=== PATIENT | female | born 1990 | race African-American/Black ===

== ENCOUNTER 2017-03-21 17:36 | Emergency (ER) | payer MEDICARE, MEDICAID ==
[~2017-03-21] VITALS: Ht 172.7 cm; Wt 97.0 kg
[2017-03-21 19:53] LABS: BASOPHILS % 0.9 % (0.0-2.0); DIFFERENTIAL COMMENT 0; EOSINOPHILS % 2.1 % (0.0-5.0); HEMATOCRIT. 38.5 % (36.0-48.0); HEMOGLOBIN. 12.5 g/dL (12.0-16.0); LYMPHOCYTES % 22.6 % (20.0-50.0); MEAN CORPUSCULAR HEMOGLOBIN 23.1 pg (28.0-32.0); MEAN CORPUSCULAR HGB CONC 32.6 g/dL (31.0-37.0); MEAN CORPUSCULAR VOLUME 71.1 fL (81.0-99.0); MEAN PLATELET VOLUME 9.1 fl (7.4-10.4); MONOCYTES % 5.2 % (2.0-8.0); NEUTROPHILS % 69.2 % (40.0-76.0); PLATELET 348 x1000/uL (130-400); RED BLOOD CELL COUNT 5.42 mill/uL (4.2-5.4); RED CELL DISTRIBUTION WIDTH 14.6 % (11.6-14.6); WHITE BLOOD COUNT 11.8 x1000/uL (4.5-11.0)
[2017-03-21 19:56] LABS: CHLORIDE 101 mEq/L (98-107)
[2017-03-21 20:03] LABS: ACETAMINOPHEN < 2 ug/mL (10-30); ALANINE AMINOTRANSFERASE 18 IU/L (13-61); ALBUMIN 3.3 g/dL (3.4-5.0); ANION GAP 11; CALCIUM 8.7 mg/dL (8.5-10.1); CARBON DIOXIDE 28 mEq/L (21-32); ETHANOL BLOOD < 10 mg/dL; INDEX HEMOLYSI 1 (1-3); INDEX ICTERIC 1 (1-4); INDEX LIPEMIC 1 (1-3); UREA NITROGEN BLOOD 11 mg/dL (7-21)
[2017-03-21 20:04] LABS: eGFR > 60 mL/min (>60)
[2017-03-21 21:02] LABS: CLARITY URINE CLEAR (CLEAR); COLOR URINE YELLOW (YELLOW); GLUCOSE URINE NEGATIVE (NEGATIVE); KETONES URINE NEGATIVE (NEGATIVE); LEUKOCYTE ESTERASE URINE NEGATIVE (NEGATIVE); NITRITE URINE NEGATIVE (NEGATIVE); OCCULT BLOOD URINE NEGATIVE (NEGATIVE); PROTEIN URINE NEGATIVE (NEGATIVE); SPECIFIC GRAVITY URINE 1.018 (1.005-1.030)
[2017-03-21 21:18] LABS: *AMPHETAMINES SCREEN URINE NEGATIVE (NEGATIVE); *BARBITURATES SCREEN URINE NEGATIVE (NEGATIVE); *BENZODIAZEPINES SCREEN URINE NEGATIVE (NEGATIVE); *COCAINE SCREEN URINE NEGATIVE (NEGATIVE); CANNABINOID URINE SCREEN NEGATIVE (NEGATIVE); METHADONE URINE SCREEN NEGATIVE (NEGATIVE); OPIATES URINE SCREEN NEGATIVE (NEGATIVE); PHENCYCLIDINE URINE SCREEN NEGATIVE (NEGATIVE)
[2017-03-21 21:21] LABS: ECSTASY MDMA SCREEN URINE CONF.TEST INDICATED (NEGATIVE)
[2017-03-22 15:57] VITALS: BP 98/53
== END 2017-03-22 15:58 ==
LOC: ER 17:38
DX: F20.9 Schizophrenia, unspecified (principal); R45.851 Suicidal ideations; H91.90 Unspecified hearing loss, unspecified ear
CPT/HCPCS: 36415; 80053; 80305; 80307; 80329; 81003; 81025; 85025; 99285; G0482

== ENCOUNTER 2018-12-05 05:55 | Emergency (ER) | payer MEDICARE, MEDICAID ==
[~2018-12-05] VITALS: Ht 170.2 cm; Wt 96.0 kg
[2018-12-05] MEDS ORDERED: IBUPROFEN 600MG TABLET PO ONE (07:30)
[2018-12-05] MEDS ORDERED: IBUPROFEN 600MG TABLET PO NR (16:36)
[2018-12-05 19:06] VITALS: BP 109/64
[2018-12-08 05:17] LABS: CHLAMYDIA TRACHOMATIS NAA Negative (Negative); NEISSERIA GONORRHOEAE NAA Negative (Negative)
== END 2018-12-05 19:12 | disposition home or self-care (01) ==
LOC: ER 05:55
DX: N89.8 Other specified noninflammatory disorders of vagina (principal); R30.0 Dysuria; F20.9 Schizophrenia, unspecified; Z91.19 Patient's noncompliance with other medical treatment and regimen; H91.90 Unspecified hearing loss, unspecified ear
CPT/HCPCS: 76856; 87210; 87491; 87591; 99284

== ENCOUNTER 2018-12-31 | Emergency (ER) | payer MEDICARE, MEDICAID ==
[~2018-12-31] VITALS: Ht 175.3 cm; Wt 102.0 kg
[2018-12-31 01:08] LABS: CLARITY URINE CLOUDY (CLEAR); COLOR URINE YELLOW (YELLOW); KETONES URINE NEGATIVE (NEGATIVE); LEUKOCYTE ESTERASE URINE 3+ (NEGATIVE); NITRITE URINE NEGATIVE (NEGATIVE); OCCULT BLOOD URINE 3+ (NEGATIVE); PROTEIN URINE NEGATIVE (NEGATIVE); SPECIFIC GRAVITY URINE 1.021 (1.005-1.030)
[2018-12-31 01:22] LABS: HCG SCREEN NEGATIVE
[2018-12-31 01:24] LABS: BASOPHILS % 1.3 % (0.0-2.0); HEMATOCRIT. 30.6 % (36.0-48.0); HEMOGLOBIN. 9.6 g/dL (12.0-16.0); LYMPHOCYTES % 37.1 % (20.0-50.0); MEAN CORPUSCULAR HEMOGLOBIN 18.8 pg (28.0-32.0); MEAN CORPUSCULAR VOLUME 60.2 fL (81.0-99.0); MEAN PLATELET VOLUME 9.1 fl (7.4-10.4); MONOCYTES % 6.5 % (2.0-8.0); NEUTROPHILS % 53.1 % (40.0-76.0); PLATELET 479 x1000/uL (130-400); RED BLOOD CELL COUNT 5.08 mill/uL (4.2-5.4); RED CELL DISTRIBUTION WIDTH 18.7 % (11.6-14.6)
[2018-12-31 01:27] LABS: CHLORIDE 103 mEq/L (98-107)
[2018-12-31 01:33] LABS: ETHANOL BLOOD < 10 mg/dL
[2018-12-31 01:36] LABS: *AMPHETAMINES SCREEN URINE NEGATIVE (NEGATIVE); *BARBITURATES SCREEN URINE NEGATIVE (NEGATIVE); *BENZODIAZEPINES SCREEN URINE NEGATIVE (NEGATIVE); CANNABINOID URINE SCREEN NEGATIVE (NEGATIVE); PHENCYCLIDINE URINE SCREEN NEGATIVE (NEGATIVE)
[2018-12-31 01:37] LABS: *COCAINE SCREEN URINE NEGATIVE (NEGATIVE); METHADONE URINE SCREEN NEGATIVE (NEGATIVE); OPIATES URINE SCREEN NEGATIVE (NEGATIVE)
[2018-12-31 01:37] LABS: PLATELET ESTIMATE SLIGHTLY INCREASED
[2018-12-31] MEDS ORDERED: CEFTRIAXONE SODIUM 250 MG/VIAL IM ONE (03:00)
[2018-12-31 20:04] VITALS: BP 138/85
== END 2018-12-31 20:06 ==
LOC: ER 00:16
DX: T43.222A Poisoning by selective serotonin reuptake inhibitors, intentional self-harm, initial encounter (principal); T37.8X2A Poisoning by other specified systemic anti-infectives and antiparasitics, intentional self-harm, initial encounter; T43.4X2A Poisoning by butyrophenone and thiothixene neuroleptics, intentional self-harm, initial encounter; F32.3 Major depressive disorder, single episode, severe with psychotic features; N39.0 Urinary tract infection, site not specified; D64.9 Anemia, unspecified; H91.90 Unspecified hearing loss, unspecified ear; F20.9 Schizophrenia, unspecified; Y92.89 Other specified places as the place of occurrence of the external cause
CPT/HCPCS: 36415; 80053; 80305; 80307; 80329; 81003; 84703; 85025; 87086; 93005; 96372; 99285; J0696

== ENCOUNTER 2019-03-14 20:58 | Inpatient (IN) | payer MEDICARE, MEDICAID ==
[~2019-03-14] VITALS: Ht 180.3 cm; Wt 97.5 kg
[2019-03-14] MEDS ORDERED: CEFTRIAXONE 1 G PREMIX 50 ML IV ONE (22:15)
[2019-03-14] MEDS ORDERED: HALOPERIDOL LACTATE 5MG/ML VIAL IM ONE (22:15)
[2019-03-14 22:58] LABS: BASOPHILS % 0.8 % (0.0-2.0); EOSINOPHILS % 2.2 % (0.0-5.0); HEMATOCRIT. 31.5 % (36.0-48.0); HEMOGLOBIN. 9.9 g/dL (12.0-16.0); LYMPHOCYTES % 28.9 % (20.0-50.0); MEAN CORPUSCULAR HEMOGLOBIN 18.4 pg (28.0-32.0); MEAN CORPUSCULAR VOLUME 58.3 fL (81.0-99.0); MEAN PLATELET VOLUME 8.8 fl (7.4-10.4); NEUTROPHILS % 62.1 % (40.0-76.0); PLATELET 450 x1000/uL (130-400); RED BLOOD CELL COUNT 5.41 mill/uL (4.2-5.4); RED CELL DISTRIBUTION WIDTH 18.7 % (11.6-14.6)
[2019-03-14 23:03] LABS: CHLORIDE 104 mEq/L (98-107)
[2019-03-14 23:07] LABS: ETHANOL BLOOD < 10 mg/dL
[2019-03-14 23:08] LABS: PLATELET ESTIMATE INCREASED
[2019-03-14 23:09] LABS: HCG SCREEN NEGATIVE
[2019-03-15] MEDS ORDERED: PIPERACILLIN/TAZOBACTAM 3.375GM/50ML PREMIX IV SCH (02:00)
[2019-03-15] MEDS ORDERED: PIPERACILLIN/TAZ 3.375G PREMIX 50 ML IV SCH (02:15)
[2019-03-15] MEDS ORDERED: LORAZEPAM 2MG/ML CPJ IV PRN (02:15)
[2019-03-15] MEDS ORDERED: ACETAMINOPHEN 325MG TABLET PO PRN (02:15)
[2019-03-15] MEDS ORDERED: VANCOMYCIN 1 G PREMIX 200 ML IV SCH (02:15)
[2019-03-15] MEDS ORDERED: ONDANSETRON HCL 4MG/2ML INJ IV PRN (02:15)
[2019-03-15] MEDS ORDERED: DIPHENHYDRAMINE 50MG/ML VIAL IV PRN (02:15)
[2019-03-15] MEDS ORDERED: VANCOMYCIN 750 MG PREMIX 150 ML IV SCH (03:00)
[2019-03-15 08:00] VITALS: BP 145/71
[2019-03-15 09:00] VITALS: BP 145/71
[2019-03-15] MEDS: HALOPERIDOL 1MG TABLET PO SCH ×2 (09:23→21:12)
[2019-03-15 10:21] VITALS: BP 113/69
[2019-03-15 11:50] VITALS: BP 104/62
[2019-03-15] MEDS: PIPERACILLIN/TAZ 3.375G PREMIX 50 ML IV SCH ×2 (12:46→22:52)
[2019-03-15] MEDS: SODIUM CHLORIDE 0.9% INJ 3ML FLUSH IVF SCH ×2 (13:48→22:53)
[2019-03-15] MEDS: VANCOMYCIN 1 G PREMIX 200 ML IV SCH ×2 (13:48→21:15)
[2019-03-15 16:53] VITALS: BP 96/57
[2019-03-15 20:00] VITALS: BP 105/57
[2019-03-16] VITALS (7 sets, daily range): BP systolic 94–116; BP diastolic 57–77
[2019-03-16] MEDS: PIPERACILLIN/TAZ 3.375G PREMIX 50 ML IV SCH ×3 (06:00→22:00)
[2019-03-16] MEDS: VANCOMYCIN 1 G PREMIX 200 ML IV SCH ×3 (06:00→22:00)
[2019-03-16] MEDS: SODIUM CHLORIDE 0.9% INJ 3ML FLUSH IVF SCH ×3 (06:00→22:00)
[2019-03-16] MEDS: HALOPERIDOL LACTATE 5MG/ML VIAL IM PRN ×2 (09:20→09:21)
[2019-03-16] MEDS: HALOPERIDOL 2MG TABLET PO SCH ×2 (10:41→21:20)
[2019-03-17] VITALS: BP 102/55
[2019-03-17 04:00] VITALS: BP 109/64
[2019-03-17] MEDS: PIPERACILLIN/TAZ 3.375G PREMIX 50 ML IV SCH (06:00)
[2019-03-17] MEDS: VANCOMYCIN 1 G PREMIX 200 ML IV SCH (06:00)
[2019-03-17] MEDS: SODIUM CHLORIDE 0.9% INJ 3ML FLUSH IVF SCH ×3 (06:00→21:14)
[2019-03-17 08:00] VITALS: BP 95/60
[2019-03-17] MEDS: HALOPERIDOL 2MG TABLET PO SCH ×2 (09:16→20:20)
[2019-03-17 12:00] VITALS: BP 104/61
[2019-03-17 16:00] VITALS: BP 100/64
[2019-03-17] MEDS: CEPHALEXIN 250MG CAPSULE PO SCH (17:57)
[2019-03-17 20:00] VITALS: BP 101/59
[2019-03-18] VITALS: BP 99/56
[2019-03-18] MEDS: CEPHALEXIN 250MG CAPSULE PO SCH ×4 (01:08→18:35)
[2019-03-18 04:00] VITALS: BP 99/62
[2019-03-18] MEDS: SODIUM CHLORIDE 0.9% INJ 3ML FLUSH IVF SCH ×2 (05:37→14:00)
[2019-03-18] MEDS: HALOPERIDOL LACTATE 5MG/ML VIAL IM PRN (09:02)
[2019-03-18] MEDS: HALOPERIDOL 2MG TABLET PO SCH ×2 (09:07→20:19)
[2019-03-18 20:00] VITALS: BP 111/73
== END 2019-03-18 20:40 | disposition home or self-care (01) | DRG 607 ==
LOC: ER 22:05 → EDBEDREQ 03-15 01:35 → 6EST 03-15 01:38 → EDBEDREQTM 03-15 01:43 → EDBEDREQ 03-15 01:43 → ENRESERV 03-15 07:40
PROVIDERS: ADMIT Internal Medicine; ATTEND Internal Medicine
DX: L73.2 Hidradenitis suppurativa (principal); F29 Unspecified psychosis not due to a substance or known physiological condition; L03.314 Cellulitis of groin; R51 Headache; H91.90 Unspecified hearing loss, unspecified ear; Z91.14 Patient's other noncompliance with medication regimen
CPT/HCPCS: 36415; 80307; 80320; 80329; 84703; 96374; 99285; J0696; J1630; J2543; J3370; J7040; G0480

== ENCOUNTER 2019-04-12 14:56 | Emergency (ER) | payer MEDICARE, MEDICAID ==
[~2019-04-12] VITALS: Ht 172.7 cm; Wt 91.0 kg
[2019-04-12] MEDS: OLANZAPINE 10MG TABLET PO SCH (19:26)
[2019-04-12 19:30] LABS: CHLORIDE 102 mEq/L (98-107)
[2019-04-12 19:31] LABS: BASOPHILS % 0.6 % (0.0-2.0); EOSINOPHILS % 1.8 % (0.0-5.0); HEMATOCRIT. 30.8 % (36.0-48.0); LYMPHOCYTES % 27.7 % (20.0-50.0); MEAN CORPUSCULAR HEMOGLOBIN 19.1 pg (28.0-32.0); MEAN CORPUSCULAR VOLUME 58.9 fL (81.0-99.0); MEAN PLATELET VOLUME 8.8 fl (7.4-10.4); MONOCYTES % 4.6 % (2.0-8.0); NEUTROPHILS % 65.3 % (40.0-76.0); PLATELET 381 x1000/uL (130-400); RED BLOOD CELL COUNT 5.22 mill/uL (4.2-5.4); RED CELL DISTRIBUTION WIDTH 21.1 % (11.6-14.6)
[2019-04-12 19:35] LABS: ETHANOL BLOOD < 10 mg/dL; HCG SCREEN NEGATIVE
[2019-04-12 20:04] LABS: PLATELET ESTIMATE NORMAL
[2019-04-12 20:38] LABS: CLARITY URINE CLEAR (CLEAR); COLOR URINE YELLOW (YELLOW); KETONES URINE NEGATIVE (NEGATIVE); LEUKOCYTE ESTERASE URINE 2+ (NEGATIVE); NITRITE URINE NEGATIVE (NEGATIVE); OCCULT BLOOD URINE NEGATIVE (NEGATIVE); PROTEIN URINE NEGATIVE (NEGATIVE); SPECIFIC GRAVITY URINE 1.015 (1.005-1.030); UROBILINOGEN URINE 0.2 E.U./dL (0.2-1.0)
[2019-04-12 20:55] LABS: *AMPHETAMINES SCREEN URINE NEGATIVE (NEGATIVE); *BARBITURATES SCREEN URINE NEGATIVE (NEGATIVE); *BENZODIAZEPINES SCREEN URINE NEGATIVE (NEGATIVE); CANNABINOID URINE SCREEN NEGATIVE (NEGATIVE); OPIATES URINE SCREEN NEGATIVE (NEGATIVE); PHENCYCLIDINE URINE SCREEN NEGATIVE (NEGATIVE)
[2019-04-12 20:56] LABS: *COCAINE SCREEN URINE NEGATIVE (NEGATIVE); METHADONE URINE SCREEN NEGATIVE (NEGATIVE)
[2019-04-12] MEDS ORDERED: CEFTRIAXONE SODIUM 1 G/VIAL IM ONE (21:15)
[2019-04-12] MEDS ORDERED: LIDOCAINE HCL 1% 20ML VIAL (Pyxis) INJ INFIL ONE (21:15)
[2019-04-13] MEDS: OLANZAPINE 10MG TABLET PO SCH (19:35)
[2019-04-15 18:39] VITALS: BP 135/75
== END 2019-04-15 19:30 | disposition home or self-care (01) ==
LOC: ER 14:56
DX: F23 Brief psychotic disorder (principal); N39.0 Urinary tract infection, site not specified; H91.90 Unspecified hearing loss, unspecified ear
CPT/HCPCS: 36415; 80053; 80305; 80307; 80320; 80329; 81003; 81025; 84703; 85025; 96372; 99284; J0696; J3490; G0480

== ENCOUNTER 2019-08-10 14:03 | Emergency (ER) | payer MEDICARE, MEDICAID ==
[~2019-08-10] VITALS: Ht 172.7 cm; Wt 68.0 kg
[2019-08-10] MEDS ORDERED: SODIUM CHLORIDE 0.9% 1,000 ML IV ONE (15:39)
[2019-08-10] MEDS ORDERED: OLANZAPINE 10 MG/VIAL IM ONE (16:15)
[2019-08-10] MEDS ORDERED: LORAZEPAM 2MG/ML CPJ IM PRN (18:15)
[2019-08-10 19:26] LABS: BASOPHILS % 0.6 % (0.0-2.0); EOSINOPHILS % 0.7 % (0.0-5.0); HEMATOCRIT. 31.1 % (36.0-48.0); HEMOGLOBIN. 9.6 g/dL (12.0-16.0); LYMPHOCYTES % 22.9 % (20.0-50.0); MEAN CORPUSCULAR HEMOGLOBIN 17.3 pg (28.0-32.0); MEAN CORPUSCULAR VOLUME 56.4 fL (81.0-99.0); MEAN PLATELET VOLUME 8.9 fl (7.4-10.4); MONOCYTES % 5.7 % (2.0-8.0); NEUTROPHILS % 70.1 % (40.0-76.0); PLATELET 496 x1000/uL (130-400); RED BLOOD CELL COUNT 5.52 mill/uL (4.2-5.4); RED CELL DISTRIBUTION WIDTH 20.5 % (11.6-14.6)
[2019-08-10 19:32] LABS: CHLORIDE 106 mEq/L (98-107)
[2019-08-10 19:37] LABS: ETHANOL BLOOD < 10 mg/dL
[2019-08-10 19:40] LABS: HCG SCREEN NEGATIVE
[2019-08-10 19:41] LABS: CREATINE KINASE 57 IU/L (26-192)
[2019-08-10 20:09] LABS: PLATELET ESTIMATE INCREASED
[2019-08-10] MEDS ORDERED: DEXT 5% WATER 100 ML IV ONE (21:00)
[2019-08-11] MEDS ORDERED: SODIUM CHLORIDE 0.9% 1000ML BAG (SEPSIS BOLUS) IV ONE (07:15)
[2019-08-11] MEDS ORDERED: LORAZEPAM 2MG/ML CPJ IV ONE (07:15)
[2019-08-11] MEDS ORDERED: VANCOMYCIN 1 G PREMIX 200 ML IV ONE (07:30)
[2019-08-11] MEDS ORDERED: PIPERACILLIN/TAZ 3.375G PREMIX 50 ML IV ONE (07:30)
[2019-08-11 08:36] LABS: CLARITY URINE CLEAR (CLEAR); COLOR URINE YELLOW (YELLOW); KETONES URINE 2+ (NEGATIVE); LEUKOCYTE ESTERASE URINE NEGATIVE (NEGATIVE); NITRITE URINE NEGATIVE (NEGATIVE); OCCULT BLOOD URINE NEGATIVE (NEGATIVE); PH URINE 5.5 (4.5-8.0); PROTEIN URINE NEGATIVE (NEGATIVE); SPECIFIC GRAVITY URINE 1.019 (1.005-1.030)
[2019-08-11 08:53] LABS: *AMPHETAMINES SCREEN URINE NEGATIVE (NEGATIVE)
[2019-08-11 08:54] LABS: *BARBITURATES SCREEN URINE NEGATIVE (NEGATIVE); *BENZODIAZEPINES SCREEN URINE NEGATIVE (NEGATIVE); *COCAINE SCREEN URINE NEGATIVE (NEGATIVE); METHADONE URINE SCREEN NEGATIVE (NEGATIVE)
[2019-08-11 08:55] LABS: CANNABINOID URINE SCREEN NEGATIVE (NEGATIVE); OPIATES URINE SCREEN NEGATIVE (NEGATIVE); PHENCYCLIDINE URINE SCREEN NEGATIVE (NEGATIVE)
[2019-08-11 09:09] VITALS: BP 108/69
== END 2019-08-11 09:55 | disposition short-term general hospital (02) ==
LOC: ER 14:03 → CANBEDREQ 08-11 09:58
DX: R62.7 Adult failure to thrive (principal); L98.418 Non-pressure chronic ulcer of buttock with other specified severity; L98.498 Non-pressure chronic ulcer of skin of other sites with other specified severity; L03.314 Cellulitis of groin; L03.317 Cellulitis of buttock; N76.2 Acute vulvitis; B99.8 Other infectious disease; F99 Mental disorder, not otherwise specified; Z91.14 Patient's other noncompliance with medication regimen
CPT/HCPCS: 36415; 71045; 74176; 80053; 80305; 80307; 80320; 80329; 81003; 82550; 82962; 83605; 83690; 84443; 84484; 84703; 85025; 87040; 87070; 87077; 87086; 87186; 87205; 96361; 96374; 96375; 99285; J2060; J2543; J3370; J3490; J7030; J7060; G0480